=== PATIENT | female | born 1975 | race Caucasian/White ===

== ENCOUNTER 2017-10-11 19:21 | Emergency (ER) | payer SELFPAY ==
[2017-10-11 20:08] VITALS: BP 106/52; PULSE 76; RESP 20; TEMP 98.4; O2SAT 98
[2017-10-11] MEDS ORDERED: BENZ100 PO (20:30)
[2017-10-11] MEDS ORDERED: AZIT250T3 PO (20:30)
--- NOTE | 2017-10-11 20:32 | PD ---
HPI Chief Complaint: Cold / Flu Symptoms Time Seen by Provider: 20:30 Travel History International Travel<30 days: No Contact w/Intl Traveler<30days: No Traveled to known affect area: No History of Present Illness HPI 42-year-old female recently moved here from [place] presents for evaluation. For one week she has had a cough, sore throat, headache. The cough is productive with green sputum production. She's had occasional chills but no objective fevers. She has been using Mucinex but symptoms persist. Denies recent travel , sick contacts, rash. No other complaints. PFSH Past Medical History Depression: Yes Fibromyalgia: Yes ?: Not Past Surgical History Hysterectomy: Yes Social History Alcohol Use: No Tobacco Use: Yes (1/2PPD) Substance Use: No Allergies-Medications (Allergen,Severity, Reaction): Coded Allergies: No Known Allergies (Unverified , 10/11/17) Reported Meds & Prescriptions Reported Meds & Active Scripts Active No Active Prescriptions or Reported Medications Review of Systems Except as stated in HPI: all other systems reviewed are Neg Physical Exam Narrative GENERAL: Well-nourished female in no acute distress SKIN: Warm and dry. HEAD: Atraumatic. Normocephalic. EYES: Pupils equal and round. No scleral icterus. No injection or drainage. ENT: No nasal bleeding or discharge. Mucous membranes pink and moist. Mild oropharyngeal erythema without exudate. NECK: Trachea midline. No JVD. No lymphadenopathy CARDIOVASCULAR: Regular rate and rhythm. No murmur appreciated. RESPIRATORY: No accessory muscle use. Clear to auscultation. Breath sounds equal bilaterally. No crackles no wheezing or rhonchi Data Data Last Documented VS Vital Signs Date Time Temp Pulse Resp B/P (MAP) Pulse Ox O2 Delivery O2 Flow Rate FiO2 10/11/17 20:08 98.4 76 20 106/52 (46) 98 MDM Medical Decision Making Medical Screen Exam Complete: Yes Emergency Medical Condition: Yes Medical Record Reviewed: Yes Differential Diagnosis Pharyngitis, bronchitis, pneumonia, influenza, sinusitis Narrative Course 6-year-old female one week of cough, congestion, sore throat, chills. She appears well. She is being discharged with Tessalon and azithromycin. Diagnosis Primary Impression: Bronchitis Additional Instructions: Medication as prescribed. Stay well hydrated well-nourished. Return for any emergent medical conditions. Med/Other Pt SpecificInfo: Prescription(s) given Scripts Benzonatate (Tessalon Perles) 100 Mg Cap 200 MG PO TID Y for COUGH, #30 CAP 0 Refills Prov: Herlinda Bautista MD 10/11/17 Azithromycin (Azithromycin) 250 Mg Tab 250 MG PO DIRECTED for Infection, #6 TAB 0 Refills Take 2 tabs (500 mg) on day 1 then 1 tab daily x 4 days. Prov: Herlinda Bautista MD 10/11/17 Disposition: 01 DISCHARGE HOME Condition: Stable Zack Perez Oct 11, 2017 20:32
== END 2017-10-11 20:45 | disposition home or self-care (01) ==
LOC: PHEFT 19:21
DX: J40 Bronchitis, not specified as acute or chronic (principal); F17.210 Nicotine dependence, cigarettes, uncomplicated
CPT/HCPCS: 99284

== ENCOUNTER 2017-11-30 18:48 | Emergency (ER) | payer OTHER ==
[~2017-11-30] VITALS: Ht 170.2 cm; Wt 58.3 kg
[~2017-11-30 18:48] MED LIST: AZIT250T3 PO; BENZ100 PO
[2017-11-30 19:04] VITALS: BP 110/56; PULSE 77; RESP 18; TEMP 98.1; O2SAT 99
[2017-11-30] MEDS ORDERED: CYMB60CA PO ×2 (20:06→21:48)
[2017-11-30] MEDS ORDERED: SODIUM CHLOR 0.9% 1000 ML INJ 1,000 ML IV SCH (20:12)
--- NOTE | 2017-11-30 20:13 | PD ---
HPI Chief Complaint: Abdominal Pain Time Seen by Provider: 19:55 Travel History International Travel<30 days: No Contact w/Intl Traveler<30days: No Traveled to known affect area: No History of Present Illness HPI patient is a 42-year-old female with a history of fibromyalgia and chronic relapsing abdominal pain presents the emergency department for evaluation of low abdominal pain. She is coming by her , states they've been trying to get a primary care physician because he just got insurance reestablished. They're concerned because she ran out of her Celexa need a refill of this. She been taking some Tylenol for pain over the past 2-3 days of the pain scan worse particularly underneath her ribs and bilateral upper quadrants. She states mild nausea without vomiting, no diarrhea no blood in the stool no melena. Denies any fevers. Patient also has a history of recurrent kidney stones, chronic hematuria for the past year and a half, recurrent urinary tract infections. Also endorses history of systems bilateral ovaries, status post hysterectomy without oophorectomy. She's never had a colonoscopy before or cystoscopy.States the abdominal pain is cramping, constant, location as above, context as above. PFSH Past Medical History Depression: Yes Fibromyalgia: Yes Tetanus Vaccination: Unknown Influenza Vaccination: No ?: Not LMP: 2003 Past Surgical History Hysterectomy: Yes Social History Alcohol Use: No Tobacco Use: No Substance Use: No Allergies-Medications (Allergen,Severity, Reaction): Coded Allergies: No Known Allergies (Unverified , 11/30/17) Reported Meds & Prescriptions Reported Meds & Active Scripts Active Cymbalta DR (Duloxetine HCl) 60 Mg Capdr 60 Mg PO DAILY Review of Systems Except as stated in HPI: all other systems reviewed are Neg Physical Exam Narrative GENERAL: Well-developed well-nourished in no obvious distress SKIN: Focused skin assessment warm/dry. HEAD: Atraumatic. Normocephalic. EYES: Pupils equal and round. No scleral icterus. No injection or drainage. ENT: No nasal bleeding or discharge. Mucous membranes pink and moist. NECK: Trachea midline. No JVD. CARDIOVASCULAR: Regular rate and rhythm. No murmur appreciated. RESPIRATORY: No accessory muscle use. Clear to auscultation. Breath sounds equal bilaterally. GASTROINTESTINAL: Abdomen soft, non-tender, nondistended. Hepatic and splenic margins not palpable. No rebound no percussive tenderness no CVA tenderness. MUSCULOSKELETAL: No obvious deformities. No clubbing. No cyanosis. No edema. NEUROLOGICAL: Awake and alert. No obvious cranial nerve deficits. Motor grossly within normal limits. Normal speech. PSYCHIATRIC: Appropriate mood and affect; insight and judgment normal. Data Data Last Documented VS Vital Signs Date Time Temp Pulse Resp B/P (MAP) Pulse Ox O2 Delivery O2 Flow Rate FiO2 11/30/17 22:06 68 15 97 11/30/17 21:48 Room Air 11/30/17 19:04 98.1 Orders Orders Urinalysis - C+S If Indicated (11/30/17 19:48) Ed Urine Pregnancytest Poc (11/30/17 19:48) Complete Blood Count With Diff (11/30/17 20:12) Comprehensive Metabolic Panel (11/30/17 20:12) Lipase (11/30/17 20:12) Iv Access Insert/Monitor (11/30/17 20:12) Ecg Monitoring (11/30/17 20:12) Oximetry (11/30/17 20:12) Sodium Chlor 0.9% 1000 Ml Inj (Ns 1000 M (11/30/17 20:12) Sodium Chloride 0.9% Flush (Ns Flush) (11/30/17 20:15) Tramadol (Ultram) (11/30/17 20:15) Urine Culture (11/30/17 20:01) Ed Discharge Order (11/30/17 21:57) Labs Laboratory Tests Test 11/30/17 20:01 11/30/17 20:35 Urine Color KAROLINE Urine Turbidity MOD Urine pH 6.0 Urine Specific Sullivan 1.030 Urine Protein TRACE mg/dL Urine Glucose (UA) NEG mg/dL Urine Ketones 15 mg/dL Urine Occult Blood LARGE Urine Nitrite NEG Urine Bilirubin NEG Urine Leukocyte Esterase NEG Urine RBC 25-49 /hpf Urine Squamous Epithelial Cells > 8 /hpf Urine Calcium Oxalate Crystals FEW /hpf Urine Bacteria MOD /hpf Urine Mucus MOD /lpf Microscopic Urinalysis Comment CULTURE INDICATED White Blood Count 6.5 TH/MM3 Red Blood Count 4.84 MIL/MM3 Hemoglobin 14.3 GM/DL Hematocrit 43.8 % Mean Corpuscular Volume 90.4 FL Mean Corpuscular Hemoglobin 29.5 PG Mean Corpuscular Hemoglobin Concent 32.6 % Red Cell Distribution Width 12.6 % Platelet Count 168 TH/MM3 Mean Platelet Volume 8.9 FL Neutrophils (%) (Auto) 54.9 % Lymphocytes (%) (Auto) 37.9 % Monocytes (%) (Auto) 5.6 % Eosinophils (%) (Auto) 0.6 % Basophils (%) (Auto) 1.0 % Neutrophils # (Auto) 3.5 TH/MM3 Lymphocytes # (Auto) 2.5 TH/MM3 Monocytes # (Auto) 0.4 TH/MM3 Eosinophils # (Auto) 0.0 TH/MM3 Basophils # (Auto) 0.1 TH/MM3 CBC Comment DIFF FINAL Differential Comment Blood Urea Nitrogen 11 MG/DL Creatinine 0.75 MG/DL Random Glucose 81 MG/DL Total Protein 6.9 GM/DL Albumin 3.7 GM/DL Calcium Level 8.7 MG/DL Alkaline Phosphatase 54 U/L Aspartate Amino Transf (AST/SGOT) 8 U/L Alanine Aminotransferase (ALT/SGPT) 10 U/L Total Bilirubin 0.4 MG/DL Sodium Level 140 MEQ/L Potassium Level 3.5 MEQ/L Chloride Level 106 MEQ/L Carbon Dioxide Level 26.4 MEQ/L Anion Gap 8 MEQ/L Estimat Glomerular Filtration Rate 86 ML/MIN Lipase 87 U/L MDM Medical Decision Making Medical Screen Exam Complete: Yes Emergency Medical Condition: Yes Differential Diagnosis UTI, hematuria, acute on chronic abdominal pain, ovarian cysts, acute abdomen highly unlikely. Narrative Course patient roomed in emergency department, pain medication given. Labs do show hematuria but leukocyte esterase and nitrate negative. CBC and CMP and negative , lipase negative. At this time I discussed with the patient that no definitive cause of her abdominal pain is been identified, given her hematuria we could consider doing a CT scan of her abdomen and pelvis however she has had multiple scans at outside facilities in the past. She appears well in no distress given her history of recurrent kidney stones suggested that she could await passage in observation but still needs follow-up with urologist and her primary care physician. Also recommended follow-up with a dip tube assembler machine for routine screening. At this time she appears quite comfortable and is no indication further workup. She stable for discharge. Discussed return to ED criteria. Diagnosis Primary Impression: Abdominal pain Qualified Codes: R10.10 - Upper abdominal pain, unspecified Referrals: Obinna Smart MD, Ammar MD Meyers,Melo Pearl MD Med/Other Pt SpecificInfo: Prescription(s) given Scripts Duloxetine (Cymbalta ) 60 Mg Capdr 60 MG PO DAILY, #30 CAP 0 Refills Prov: Filiberto Cardona MD 11/30/17 Disposition: 01 DISCHARGE HOME Condition: Stable Filiberto Cardona MD Nov 30, 2017 20:13
[2017-11-30] MEDS ORDERED: traMADol HCL 50 MG TAB PO ONE (20:15)
[2017-11-30] MEDS ORDERED: SODIUM CHLORIDE 0.9% FLUSH 10 ML FLUSH IV FLUSH PRN (20:15)
[2017-11-30 20:40] VITALS: O2SAT 97
[2017-11-30 20:42] LABS: AUTOMATED NEUTROPHIL # 3.5 TH/MM3 (1.8-7.7); BASOPHIL # 0.1 TH/MM3 (0-0.2); EOSINOPHIL % 0.6 % (0.0-4.0); HEMATOCRIT 43.8 % (35.0-46.0); HEMOGLOBIN 14.3 GM/DL (11.6-15.3); LYMPH % 37.9 % (9.0-44.0); LYMPHOCYTE # 2.5 TH/MM3 (1.0-4.8); MEAN CELL VOLUME 90.4 FL (80.0-100.0); MEAN CORPUSCULAR HEMOGLOBIN 29.5 PG (27.0-34.0); MEAN CORPUSCULAR HGB CONC 32.6 % (32.0-36.0); MEAN PLATELET VOLUME 8.9 FL (7.0-11.0); MONO % 5.6 % (0.0-8.0); MONOCYTE # 0.4 TH/MM3 (0-0.9); NEUT % 54.9 % (16.0-70.0); PLATELET COUNT 168 TH/MM3 (150-450); RED BLOOD COUNT 4.84 MIL/MM3 (4.00-5.30); RED CELL DISTRIBUTION WIDTH 12.6 % (11.6-17.2); WHITE BLOOD COUNT 6.5 TH/MM3 (4.0-11.0)
[2017-11-30 20:43] VITALS: BP 98/46; PULSE 64; RESP 18; O2SAT 99
[2017-11-30 20:43] LABS: BLOOD, URINE LARGE (NEG); GLUCOSE,URINE NEG (NEG); KETONE, URINE 15 mg/dL (NEG); NITRITE,URINE NEG (NEG); URINE LEUKOCYTE ESTERASE NEG (NEG)
[2017-11-30 20:51] LABS: BILIRUBIN, URINE NEG (NEG); URINE COLOR AMBER (YELLW/STRAW)
[2017-11-30 20:52] LABS: BACTERIA, URINE MOD /hpf; CALCIUM OXALATE CRYSTALS,URINE FEW /hpf; MUCUS URINE MOD /lpf (OCC); SQUAMOUS EPITHELIAL CELL URINE > 8 /hpf (0-5)
[2017-11-30 21:24] LABS: CHLORIDE 106 MEQ/L (98-107); SODIUM (NA) 140 MEQ/L (136-145)
[2017-11-30 21:27] LABS: CALCIUM 8.7 MG/DL (8.5-10.1)
[2017-11-30 21:28] LABS: ALBUMIN 3.7 GM/DL (3.4-5.0); BICARBONATE 26.4 MEQ/L (21.0-32.0); BLOOD UREA NITROGEN 11 MG/DL (7-18); GLUCOSE,RANDOM 81 MG/DL (74-106); LIPASE 87 U/L (73-393)
[2017-11-30 21:31] LABS: ALT (GPT) 10 U/L (10-53); AST (GOT) 8 U/L (15-37); CREATININE 0.75 MG/DL (0.50-1.00); GLOMERULAR FILTRATION RATE 86 ML/MIN (>89)
[2017-11-30 21:33] LABS: TOTAL BILIRUBIN ADULT 0.4 MG/DL (0.2-1.0); TOTAL PROTEIN 6.9 GM/DL (6.4-8.2)
[2017-11-30 21:34] LABS: ALKALINE PHOSPHATASE 54 U/L (45-117)
[2017-11-30 21:48] VITALS: BP 96/45; PULSE 62; RESP 15; O2SAT 99
== END 2017-11-30 22:12 | disposition home or self-care (01) ==
LOC: PHED 18:48
DX: R10.30 Lower abdominal pain, unspecified (principal); R31.9 Hematuria, unspecified; B96.1 Klebsiella pneumoniae [K. pneumoniae] as the cause of diseases classified elsewhere; M79.7 Fibromyalgia; Z87.442 Personal history of urinary calculi; Z87.440 Personal history of urinary (tract) infections; Z90.710 Acquired absence of both cervix and uterus
CPT/HCPCS: 80053; 81001; 83690; 84703; 85025; 87077; 87086; 87186; 96360; 99284; J7030

== ENCOUNTER 2018-02-03 14:47 | Emergency (ER) | payer OTHER ==
[~2018-02-03] VITALS: Ht 170.2 cm; Wt 55.9 kg
[~2018-02-03 14:47] MED LIST changes: -AZIT250T3 PO; -BENZ100 PO; +CYMB60CA PO
[2018-02-03 15:11] VITALS: BP 111/52; PULSE 81; RESP 16; TEMP 98.1; O2SAT 98
[2018-02-03] MEDS ORDERED: BACT800T5 PO (16:18)
[2018-02-03] MEDS ORDERED: CEPH-460 PO (16:18)
--- NOTE | 2018-02-03 16:19 | PD ---
HPI Chief Complaint: Skin Problem Time Seen by Provider: 15:40 Travel History International Travel<30 days: No Contact w/Intl Traveler<30days: No Traveled to known affect area: No History of Present Illness HPI This is a 42-year-old female here with abscess underneath the left breast present for one week. She denies fever or chills. She reports the area is painful to touch. Aggravated by formfitting clothing and touching the area. No alleviating factors. Symptoms severity is moderate. PFSH Past Medical History Medical History: Denies Significant Hx Depression: Yes Fibromyalgia: Yes Musculoskeletal: Yes (r shoulder repair, knee surgery) Tetanus Vaccination: > 5 Years Influenza Vaccination: No ?: Not Past Surgical History Hysterectomy: Yes Social History Alcohol Use: No Tobacco Use: Yes (1ppd) Substance Use: No Allergies-Medications (Allergen,Severity, Reaction): Coded Allergies: No Known Allergies (Unverified , 02/03/18) Reported Meds & Prescriptions Reported Meds & Active Scripts Active Cymbalta DR (Duloxetine HCl) 60 Mg Capdr 60 Mg PO DAILY Review of Systems Except as stated in HPI: all other systems reviewed are Neg General / Constitutional: No: Fever Eyes: No: Visual changes HENT: No: Headaches Cardiovascular: No: Chest Pain or Discomfort Respiratory: No: Shortness of Breath Gastrointestinal: No: Abdominal Pain Genitourinary: No: Dysuria Physical Exam Narrative GENERAL: Alert and well-appearing 42-year-old female SKIN: Warm and dry. 1CM abscess to the left breast 3 finger widths below the nipple. The area is fluctuant. No drainage. HEAD: Normocephalic. EYES: No injection or drainage. NECK: Supple Breast: Left breast 1 cm raised fluctuant abscess to the breast below the nipple. No surrounding induration or cellulitis. No drainage from the nipple. No palpable mass felt in the breast or axilla. Data Data Last Documented VS Vital Signs Date Time Temp Pulse Resp B/P (MAP) Pulse Ox O2 Delivery O2 Flow Rate FiO2 02/03/18 15:11 98.1 81 16 111/52 (71) 98 MDM Medical Decision Making Medical Screen Exam Complete: Yes Emergency Medical Condition: Yes Differential Diagnosis Abscess, cellulitis, inflamed sebaceous cyst Narrative Course 42-year-old female here with an abscess to the left breast. She is nontoxic appearing. The abscess was incised and drained. Patient tolerated procedure well. She'll be discharged home on Bactrim and Keflex. Return precautions were discussed. Procedures Procedure Narrative INCISION AND DRAINAGE OF ABSCESS: The area was prepped and was sterilely draped. A subcutaneous wheal of 1% lidocaine with a total number [1] mL was used to anesthetize the area properly. A number [11] scalpel was used to make a [0.5] -cm incision across the area of the abscess. The abscess was drained, complex loculations were broken down, and irrigated with normal saline. Sterile dressing applied. Diagnosis Primary Impression: Abscess Referrals: Primary Care Physician Additional Instructions: Wash the area daily with soap and water. Apply clean dry dressing. Return to emergency department he developed new or worsening symptoms Scripts Cephalexin (Keflex) 500 Mg Cap 500 MG PO Q6H for Infection for 10 Days, #40 CAP 0 Refills Prov: Yue Sunshine 02/03/18 Sulfamethoxazole-Trimethoprim (Bactrim DS) 800-160 Mg Tab 1 TAB PO BID for Infection, #20 TAB 0 Refills Prov: Yue Sunshine 02/03/18 Disposition: 01 DISCHARGE HOME Condition: Stable Yue Sunshine Feb 03, 2018 16:18
== END 2018-02-03 16:40 | disposition home or self-care (01) ==
LOC: PHEFT 14:47
DX: N61.1 Abscess of the breast and nipple (principal); F32.9 Major depressive disorder, single episode, unspecified; M79.7 Fibromyalgia; F17.210 Nicotine dependence, cigarettes, uncomplicated; Z79.899 Other long term (current) drug therapy
CPT/HCPCS: 10060